=== PATIENT | female | born 1980 | race African-American/Black ===

== ENCOUNTER 2021-07-12 12:51 | Outpatient (CLI) | payer MEDICARE, MEDICAID | END 2021-07-12 12:52 | disposition home or self-care (01) | LOC: CSHMAMMO 12:51 | PROVIDERS: ATTEND Obstetrics & Gynecology | DX: Z12.31 Encounter for screening mammogram for malignant neoplasm of breast (principal) | CPT/HCPCS: 77063; 77067 ==

== ENCOUNTER 2021-08-19 08:51 | Outpatient (CLI) | payer MEDICARE, MEDICAID | END 2021-08-19 08:52 | disposition home or self-care (01) | LOC: CSHULT 08:51 | PROVIDERS: ATTEND Surgery | DX: N64.52 Nipple discharge (principal) ==